=== PATIENT | male | born 1950 | race Caucasian/White ===

== ENCOUNTER 2020-10-17 08:04 | Outpatient (CLI) | payer MEDICARE, OTHER | END 2020-10-17 08:05 | disposition home or self-care (01) | LOC: CSHCT 08:04 | PROVIDERS: ATTEND Internal Medicine Critical Care Medicine | DX: R06.00 Dyspnea, unspecified (principal); I51.7 Cardiomegaly | CPT/HCPCS: 71275; 82565 ==